=== PATIENT | male | born 1985 | race Hispanic/Latino ===

== ENCOUNTER 2021-04-28 17:48 | Emergency (ER) | payer OTHER, SELFPAY ==
[~2021-04-28 17:48] MED LIST: Iopamidol 370 76% 100 ML VIAL ONE
[2021-04-28 18:50] LABS: #Lymphocytes 1.7 thou/uL (1.20-3.40); #Monocytes 0.4 thou/uL (0.11-0.59); #Neutrophils 4.4 thou/uL (1.40-6.50); %Basophils 0.3 % (0.0-1.0); %Eosinophils 0.3 % (0.0-10.0); %Lymphocytes 25.6 % (21.0-51.0); %Monocytes 6.2 % (0.0-10.0); %Neutrophils 67.6 % (42.0-75.0); Hemoglobin 15.1 g/dL (14.0-18.0); Mean Corpuscular HGB CONC 34.6 g/dL (32.0-36.0); Mean Corpuscular Hemoglobin 31.6 pg (27.0-31.0); Mean Corpuscular Volume 91.4 fL (78.0-98.0); Mean Platelet Volume 8.4 fL (7.4-10.4); Platelet Count 217 thou/uL (130-400); RBC Distribution Width 10.8 % (11.5-14.5); Red Blood Cell (RBC) Count 4.78 mill/uL (4.70-6.10); White Blood Cell (WBC) Count 6.5 thou/uL (4.8-10.8)
[2021-04-28 19:20] LABS: ALT (SGPT) 22 U/L (8-55); AST (SGOT) 20 U/L (5-34); Albumin 4.2 g/dL (3.5-5.0); Alkaline Phosphatase 67 U/L (40-110); Anion Gap 21 mmol/L (10-20); BUN (Urea Nitrogen) 12 mg/dL (8.9-20.6); Calc. Creatinine Clearance 0 mL/min (70-130); Calcium 9.7 mg/dL (7.8-10.44); Carbon Dioxide 22 mmol/L (22-29); Chloride 100 mmol/L (98-107); Glucose 207 mg/dL (70-105); Lipase 130 U/L (8-78); Potassium 4.5 mmol/L (3.5-5.1); Protein, Total 8.2 g/dL (6.0-8.3); Sodium 138 mmol/L (136-145)
[2021-04-28 19:38] LABS: Bacteria/HPF 1+ HPF (None Seen); Bilirubin Negative (Negative); Blood, Urine Trace (Negative); Clarity Turbid (Clear); Glucose, Urine (Dipstick) Greater than 1000 mg/dL (Negative); Ketone, Urine 80 mg/dL (Negative); Leukocyte 500 Leu/uL (Negative); Nitrite Negative (Negative); Protein, Urine (Dipstick) 30 mg/dL (Neg-Trace); Specific Gravity, Urine 1.026 (1.002-1.036); Squamous Epithelial 0-3 HPF (0-3); WBC/HPF Greater than 50 HPF (0-3)
[2021-04-28] MEDS ORDERED: Ondansetron PF 4 MG/2 ML Vial ONE (21:00)
[2021-04-28] MEDS ORDERED: Metoclopramide 10 MG/10 ML UDCUP ONE (21:00)
[2021-04-28] MEDS ORDERED: Metoclopramide HCl 10 MG/2 ML VIAL ONE (21:00)
== END 2021-04-28 22:10 | disposition home or self-care (01) ==
LOC: ERS 17:48
DX: R11.2 Nausea with vomiting, unspecified (principal); R10.13 Epigastric pain; E11.9 Type 2 diabetes mellitus without complications; I10 Essential (primary) hypertension; Z79.4 Long term (current) use of insulin; Z79.899 Other long term (current) drug therapy
CPT/HCPCS: 74177; 80053; 81003; 81015; 83690; 85025; 93005; 96374; 96375; J2405; J2765; Q9967

== ENCOUNTER 2021-04-30 19:43 | Inpatient (IN) | payer SELFPAY ==
[2021-04-30 20:42] LABS: #Lymphocytes 0.9 thou/uL (1.20-3.40); #Monocytes 0.4 thou/uL (0.11-0.59); #Neutrophils 9.3 thou/uL (1.40-6.50); %Eosinophils 0.1 % (0.0-10.0); %Lymphocytes 8.3 % (21.0-51.0); %Monocytes 3.6 % (0.0-10.0); Hemoglobin 14.7 g/dL (14.0-18.0); Mean Corpuscular HGB CONC 35.6 g/dL (32.0-36.0); Mean Corpuscular Hemoglobin 32.1 pg (27.0-31.0); Mean Corpuscular Volume 90.1 fL (78.0-98.0); Mean Platelet Volume 9.2 fL (7.4-10.4); Platelet Count 197 thou/uL (130-400); RBC Distribution Width 10.9 % (11.5-14.5); Red Blood Cell (RBC) Count 4.58 mill/uL (4.70-6.10); White Blood Cell (WBC) Count 10.6 thou/uL (4.8-10.8)
[2021-04-30] MEDS ORDERED: Pantoprazole 40 MG VIAL ONE ×2 (20:49→20:52)
[2021-04-30 21:04] LABS: ALT (SGPT) 18 U/L (8-55); AST (SGOT) 13 U/L (5-34); Albumin 4.1 g/dL (3.5-5.0); Alkaline Phosphatase 63 U/L (40-110); Anion Gap 24 mmol/L (10-20); BUN (Urea Nitrogen) 22 mg/dL (8.9-20.6); Bilirubin, Total 0.9 mg/dL (0.2-1.2); Calc. Creatinine Clearance 0 mL/min (70-130); Calcium 9.9 mg/dL (7.8-10.44); Carbon Dioxide 19 mmol/L (22-29); Chloride 101 mmol/L (98-107); Globulin 3.7 g/dL (2.4-3.5); Glucose 385 mg/dL (70-105); Lipase 94 U/L (8-78); Magnesium 2.3 mg/dL (1.6-2.6); Potassium 5.7 mmol/L (3.5-5.1); Protein, Total 7.8 g/dL (6.0-8.3); Sodium 138 mmol/L (136-145)
[2021-04-30] MEDS ORDERED: INSULIN REGULAR IN 0.9 % NACL 100 UNIT/100 ML BAG ONE ×2 (22:14→22:39)
[2021-04-30] MEDS ORDERED: Acetaminophen 325 MG TAB PO PRN (22:53)
[2021-04-30] MEDS ORDERED: Ondansetron PF 4 MG/2 ML Vial IVP PRN (22:53)
[2021-04-30] MEDS ORDERED: Promethazine HCl 25 MG in Sodium Chloride 0.9% 50 ML IVPB PRN (22:55)
[2021-04-30] MEDS ORDERED: NS 0.9% w/ 20 MEQ KCL 1,000 ML IV PRN ×2 (22:56)
[2021-04-30] MEDS ORDERED: Sodium Chloride 0.9% 1,000 ML IV PRN ×4 (22:56)
[2021-04-30] MEDS ORDERED: Electrolyte Replacement Protocol 1 EACH IVPB SCH (22:56)
[2021-04-30] MEDS ORDERED: Dextrose 5 %-0.45 % NaCl 1,000 ML IV PRN (22:56)
[2021-04-30] MEDS ORDERED: hydrALAZINE 20 MG/ML VIAL SLOW IVP PRN (22:59)
[2021-04-30] MEDS ORDERED: HUMULIN R 100 UNITS in Sodium Chloride 0.9% 100 ML IVPB SCH (23:00)
[2021-04-30 23:45] LABS: Anion Gap 21 mmol/L (10-20); BUN (Urea Nitrogen) 22 mg/dL (8.9-20.6); Calc. Creatinine Clearance 0 mL/min (70-130); Carbon Dioxide 19 mmol/L (22-29); Chloride 105 mmol/L (98-107); Glucose 296 mg/dL (70-105); Magnesium 2.2 mg/dL (1.6-2.6); Phosphorus 3.2 mg/dL (2.3-4.7); Potassium 5.1 mmol/L (3.5-5.1); Sodium 140 mmol/L (136-145)
[2021-05-01 00:07] LABS: Bilirubin Negative (Negative); Blood, Urine Negative (Negative); Clarity Clear (Clear); Glucose, Urine (Dipstick) Greater than 1000 mg/dL (Negative); Ketone, Urine Greater than 150 mg/dL (Negative); Leukocyte 75 Leu/uL (Negative); Nitrite Negative (Negative); Protein, Urine (Dipstick) 70 mg/dL (Neg-Trace); RBC/HPF 0-3 HPF (0-3); Specific Gravity, Urine 1.035 (1.002-1.036); Squamous Epithelial 0-3 HPF (0-3); Urobilinogen Normal mg/dL (Less than 2); WBC/HPF 21-50 HPF (0-3); pH, Urine 5.5 (5.0-9.0)
[2021-05-01] MEDS ORDERED: Magnesium 2 GM/50 ML BAG (IN WATER) ONE (00:14)
[2021-05-01 00:15] LABS: Bacteria/HPF Rare-Few HPF (None Seen)
[2021-05-01 01:24] LABS: SARS-CoV-2 NAA Rapid Test Not Detected (NotDetected)
[2021-05-01 04:29] LABS: Anion Gap 15 mmol/L (10-20); BUN (Urea Nitrogen) 21 mg/dL (8.9-20.6); Calc. Creatinine Clearance 88 mL/min (70-130); Carbon Dioxide 20 mmol/L (22-29); Chloride 108 mmol/L (98-107); Glucose 259 mg/dL (70-105); Potassium 3.8 mmol/L (3.5-5.1); Sodium 139 mmol/L (136-145)
[2021-05-01 04:35] LABS: #Lymphocytes 1.4 thou/uL (1.20-3.40); #Monocytes 0.8 thou/uL (0.11-0.59); #Neutrophils 7.9 thou/uL (1.40-6.50); %Eosinophils 0.1 % (0.0-10.0); %Lymphocytes 13.9 % (21.0-51.0); %Monocytes 8.3 % (0.0-10.0); %Neutrophils 77.8 % (42.0-75.0); Mean Corpuscular HGB CONC 35.8 g/dL (32.0-36.0); Mean Corpuscular Hemoglobin 32.2 pg (27.0-31.0); Mean Platelet Volume 9.2 fL (7.4-10.4); Platelet Count 182 thou/uL (130-400); Red Blood Cell (RBC) Count 4.04 mill/uL (4.70-6.10); White Blood Cell (WBC) Count 10.1 thou/uL (4.8-10.8)
[2021-05-01] MEDS: D5 1/2 NS w/20 mEq KCL 1,000 ML IV PRN (04:43)
[2021-05-01 07:32] LABS: Anion Gap 14 mmol/L (10-20); BUN (Urea Nitrogen) 17 mg/dL (8.9-20.6); Calc. Creatinine Clearance 101 mL/min (70-130); Calcium 9.1 mg/dL (7.8-10.44); Carbon Dioxide 21 mmol/L (22-29); Chloride 109 mmol/L (98-107); Glucose 130 mg/dL (70-105); Potassium 3.7 mmol/L (3.5-5.1); Sodium 140 mmol/L (136-145)
[2021-05-01] MEDS: cefTRIAXone\\ROCEPHIN 1 GM in Sodium Chloride 0.9% 100 ML IVPB SCH (09:28)
[2021-05-01] MEDS: Pantoprazole 40 MG VIAL IVP SCH ×2 (09:28→20:54)
[2021-05-01] MEDS: Amlodipine 5 MG TAB PO SCH ×2 (09:28→20:53)
[2021-05-01] MEDS: Metoclopramide HCl 10 MG/2 ML VIAL IVP PRN (10:25)
[2021-05-01] MEDS ORDERED: Labetalol HCl 100 MG/20 ML VIAL SLOW IVP PRN (10:26)
[2021-05-01 11:09] LABS: Hemoglobin 13.1 g/dL (14.0-18.0)
[2021-05-01] MEDS: Promethazine HCl 25 MG/ML VIAL IM PRN ×2 (14:26→20:07)
[2021-05-01 20:18] LABS: Hemoglobin 13.9 g/dL (14.0-18.0)
[2021-05-02] MEDS: D5 1/2 NS w/20 mEq KCL 1,000 ML IV PRN ×2 (01:14→20:44)
[2021-05-02 04:08] LABS: #Lymphocytes 2.5 thou/uL (1.20-3.40); #Monocytes 0.6 thou/uL (0.11-0.59); %Basophils 0.5 % (0.0-1.0); %Eosinophils 0.5 % (0.0-10.0); %Lymphocytes 34.6 % (21.0-51.0); %Neutrophils 56.5 % (42.0-75.0); Hemoglobin 13.1 g/dL (14.0-18.0); Mean Corpuscular HGB CONC 33.2 g/dL (32.0-36.0); Mean Corpuscular Hemoglobin 30.4 pg (27.0-31.0); Mean Corpuscular Volume 91.8 fL (78.0-98.0); Mean Platelet Volume 9.3 fL (7.4-10.4); Platelet Count 166 thou/uL (130-400); Red Blood Cell (RBC) Count 4.29 mill/uL (4.70-6.10); White Blood Cell (WBC) Count 7.1 thou/uL (4.8-10.8)
[2021-05-02 04:36] LABS: Anion Gap 12 mmol/L (10-20); BUN (Urea Nitrogen) 9 mg/dL (8.9-20.6); Calc. Creatinine Clearance 137 mL/min (70-130); Calcium 8.7 mg/dL (7.8-10.44); Carbon Dioxide 23 mmol/L (22-29); Chloride 107 mmol/L (98-107); Glucose 183 mg/dL (70-105); Potassium 3.4 mmol/L (3.5-5.1); Sodium 139 mmol/L (136-145)
[2021-05-02] MEDS: Metoclopramide HCl 10 MG/2 ML VIAL IVP PRN (06:12)
[2021-05-02] MEDS ORDERED: Potassium Chloride 20 MEQ TAB PO SCH (07:00)
[2021-05-02] MEDS: Amlodipine 5 MG TAB PO SCH ×2 (08:33→20:42)
[2021-05-02] MEDS: Pantoprazole 40 MG VIAL IVP SCH ×2 (08:34→20:44)
[2021-05-02] MEDS: cefTRIAXone\\ROCEPHIN 1 GM in Sodium Chloride 0.9% 100 ML IVPB SCH (08:34)
[2021-05-02 10:56] LABS: Hemoglobin 13.8 g/dL (14.0-18.0)
[2021-05-02] MEDS ORDERED: Fentanyl 100 MCG/2 ML VIAL ONE (12:58)
[2021-05-02] MEDS ORDERED: PROPOFOL 200 MG/20 ML VIAL ONE (13:10)
[2021-05-02] MEDS ORDERED: Lidocaine 1% PF 5 ML VIAL ONE (13:10)
[2021-05-02] MEDS ORDERED: Succinylcholine 200 MG/10 ml SYRINGE FS ONE (13:10)
[2021-05-02] MEDS ORDERED: Ondansetron HCl/PF 4 MG/2 ML Vial IVP PRN (14:04)
[2021-05-02] MEDS ORDERED: Promethazine HCl 25 MG/ML VIAL IM PRN (14:04)
[2021-05-02] MEDS ORDERED: HYDROmorphone 2 MG/ML VIAL SLOW IVP PRN (14:04)
[2021-05-02] MEDS ORDERED: Promethazine HCl 25 MG/ML VIAL IVPB PRN (14:04)
[2021-05-03 04:02] LABS: #Monocytes 0.8 thou/uL (0.11-0.59); #Neutrophils 8.2 thou/uL (1.40-6.50); %Basophils 0.1 % (0.0-1.0); %Eosinophils 0.1 % (0.0-10.0); %Lymphocytes 18.3 % (21.0-51.0); %Monocytes 7.4 % (0.0-10.0); %Neutrophils 74.2 % (42.0-75.0); Hemoglobin 12.6 g/dL (14.0-18.0); Mean Corpuscular HGB CONC 34.7 g/dL (32.0-36.0); Mean Corpuscular Hemoglobin 31.7 pg (27.0-31.0); Mean Corpuscular Volume 91.5 fL (78.0-98.0); Mean Platelet Volume 8.8 fL (7.4-10.4); Platelet Count 144 thou/uL (130-400); RBC Distribution Width 10.8 % (11.5-14.5); Red Blood Cell (RBC) Count 3.99 mill/uL (4.70-6.10)
[2021-05-03 04:34] LABS: Anion Gap 9 mmol/L (10-20); BUN (Urea Nitrogen) 8 mg/dL (8.9-20.6); Calc. Creatinine Clearance 127 mL/min (70-130); Calcium 8.6 mg/dL (7.8-10.44); Carbon Dioxide 24 mmol/L (22-29); Chloride 105 mmol/L (98-107); Glucose 200 mg/dL (70-105); Potassium 3.4 mmol/L (3.5-5.1); Sodium 135 mmol/L (136-145)
[2021-05-03] MEDS ORDERED: Potassium Chloride 20 MEQ TAB PO SCH (07:00)
[2021-05-03] MEDS ORDERED: Dextrose 50% Abboject 50 ML SYRINGE SLOW IVP PRN (07:46)
[2021-05-03] MEDS ORDERED: Dextrose 5% in Water 1,000 ML IV PRN (07:46)
[2021-05-03] MEDS: Pantoprazole 40 MG VIAL IVP SCH ×2 (09:06→20:27)
[2021-05-03] MEDS: Lantus 1000 UNITS/10 ML VIAL SC SCH ×2 (09:06→20:28)
[2021-05-03] MEDS: cefTRIAXone\\ROCEPHIN 1 GM in Sodium Chloride 0.9% 100 ML IVPB SCH (09:06)
[2021-05-03] MEDS: Amlodipine 5 MG TAB PO SCH ×2 (09:06→20:27)
[2021-05-03] MEDS: Metoclopramide HCl 10 MG/2 ML VIAL IVP PRN (10:17)
[2021-05-03] MEDS: HumaLOG 300 UNITS/3 ML VIAL SC PRN ×2 (11:20→16:50)
[2021-05-04 04:31] LABS: Anion Gap 10 mmol/L (10-20); BUN (Urea Nitrogen) 6 mg/dL (8.9-20.6); Calc. Creatinine Clearance 138 mL/min (70-130); Carbon Dioxide 23 mmol/L (22-29); Chloride 105 mmol/L (98-107); Glucose 150 mg/dL (70-105); Potassium 3.4 mmol/L (3.5-5.1); Sodium 135 mmol/L (136-145)
[2021-05-04] MEDS ORDERED: Potassium Chloride 20 MEQ TAB PO SCH ×2 (05:45→08:30)
[2021-05-04] MEDS: HumaLOG 300 UNITS/3 ML VIAL SC PRN ×3 (06:31→21:15)
[2021-05-04] MEDS: Amlodipine 5 MG TAB PO SCH ×2 (09:07→21:13)
[2021-05-04] MEDS: Lantus 1000 UNITS/10 ML VIAL SC SCH ×2 (09:09→21:13)
[2021-05-04] MEDS: Pantoprazole 40 MG VIAL IVP SCH ×2 (09:36→21:13)
[2021-05-04 14:38] VITALS: BMI 22.8
[2021-05-05 06:36] LABS: Anion Gap 13 mmol/L (10-20); BUN (Urea Nitrogen) 7 mg/dL (8.9-20.6); Calc. Creatinine Clearance 138 mL/min (70-130); Calcium 8.9 mg/dL (7.8-10.44); Carbon Dioxide 26 mmol/L (22-29); Chloride 103 mmol/L (98-107); Glucose 153 mg/dL (70-105); Potassium 3.7 mmol/L (3.5-5.1); Sodium 138 mmol/L (136-145)
[2021-05-05] MEDS: Amlodipine 5 MG TAB PO SCH (08:50)
[2021-05-05] MEDS: Pantoprazole 40 MG VIAL IVP SCH (08:50)
[2021-05-05] MEDS: Lantus 1000 UNITS/10 ML VIAL SC SCH (08:51)
[2021-05-05 11:42] VITALS: BP 148/92; TEMP 98.3
[2021-05-05] MEDS ORDERED: Ondansetron ODT 4 MG TAB PO SCH (13:00)
== END 2021-05-05 14:04 | disposition home or self-care (01) | DRG 380 ==
LOC: ERS 19:43 → IMCU/EMU 22:53 → T4-A 05-04 09:43
PROVIDERS: ADMIT Internal Medicine; ATTEND Internal Medicine
PROC: 0DJ08ZZ Inspection of Upper Intestinal Tract, Via Natural or Artificial Opening Endoscopic (ICD-10-PCS; principal; 2021-05-02)
DX: K22.11 Ulcer of esophagus with bleeding (principal); E11.10 Type 2 diabetes mellitus with ketoacidosis without coma; N17.9 Acute kidney failure, unspecified; N39.0 Urinary tract infection, site not specified; Z20.822 Contact with and (suspected) exposure to COVID-19; I10 Essential (primary) hypertension; K21.00 Gastro-esophageal reflux disease with esophagitis, without bleeding; E87.5 Hyperkalemia; F10.10 Alcohol abuse, uncomplicated; Z79.4 Long term (current) use of insulin; Z98.890 Other specified postprocedural states; Z91.14 Patient's other noncompliance with medication regimen
CPT/HCPCS: 36415; 36416; 80048; 80053; 81003; 81015; 82010; 83690; 83735; 84100; 85025; 87086; 93005; 96365; 96366; 96374; 96375; C9113; J0696; J1815; J2550; J2704; J2765; J3010; J3475; J3480; J3490; Q0162; U0002